=== PATIENT | male | born 1970 | race Caucasian/White ===

== ENCOUNTER → 2020-03-26 | Outpatient (CLI) | payer OTHER ==
[~2020-03-26] MED LIST: CATHETER FLUSH 10 ML SYR IV PRN; HOLD METFORMIN - RECEIVED CONTRAST 20 ML VIAL IV SCH; IOHEXOL 350 MG/ML 150 ML (OMNIPAQUE 350) VIAL IV ONE; NS 100 ML (IVPB) BAG IV ONE
--- NOTE | 2020-03-26 10:05 | Diagnostic Imaging Report ---
EXAMINATION: CT angiography of the chest. TECHNIQUE: Contrast enhanced thin section helical images were obtained through the chest with intravenous contrast timed for the optimal opacification of the arterial structures per CTA protocol. Post-processing, reconstructions and interpretation of angiographic images of the vessels was performed. 3D MIP reconstructions were performed and reviewed. All CT scans use one or more of the following dose optimizing techniques: automated exposure control, MA and/or KvP adjustment based on a patient size and exam type, or iterative reconstruction. HISTORY: COVID-19 with cough, shortness of breath and elevated D-dimer. COMPARISON: None available. FINDINGS: Vascular: No filling defects within the pulmonary arteries. Thoracic aorta is normal in caliber. Thyroid: The thyroid is normal. Mediastinum: Heart size is normal without significant pericardial effusion. No suspicious lymphadenopathy. Lungs and airways: The lungs are clear without consolidation, pleural effusion, or pneumothorax. The airways are normal. Upper abdomen: The gallbladder is surgically absent. There is mild mesenteric stranding and prominent but not pathologically enlarged lymph nodes within the mesentery. Musculoskeletal: No suspicious osseous lesion or compression fracture. IMPRESSION: 1. No findings of pulmonary embolus or other acute abnormality in the chest. 2. Mesenteric fat stranding and prominent lymph nodes. Although these findings are nonspecific, they can be seen with entity such as lymphoma. Recommend correlation with laboratory values. Dictated by: Dictated on workstation # [id number]
== END ==
LOC: RAD FS 09:16
PROVIDERS: ATTEND Nurse Practitioner Family
DX: U07.1 COVID-19 (principal); R79.1 Abnormal coagulation profile; Z90.49 Acquired absence of other specified parts of digestive tract
CPT/HCPCS: 71275

== ENCOUNTER → 2021-02-09 | Outpatient (CLI) | payer OTHER ==
--- NOTE | 2021-02-09 11:42 | Diagnostic Imaging Report ---
PROCEDURE: CT urinary tract, rule out kidney stone. TECHNIQUE: Multiple contiguous axial images were obtained through the abdomen and pelvis without the use of intravenous contrast. Auto Exposure Controls were utilized during the CT exam to meet ALARA standards for radiation dose reduction. INDICATION: Left-sided flank pain x 1 month. Patient does have a history of kidney stones. COMPARISON: No prior studies are available for comparison. FINDINGS: The lung bases are clear. The liver is unremarkable. The gallbladder is surgically absent. No biliary ductal dilatation is seen. The pancreas and spleen are unremarkable. No adrenal mass is detected. No renal calculi or hydronephrosis is identified. There is a probable cyst in the lower pole of the left kidney measuring 2 cm. No ureteral or bladder calculi are seen. The small and large bowel loops are normal in caliber. There is no obstruction. There is diverticulosis throughout the colon, most marked involving the sigmoid colon, but no evidence of acute diverticulitis. There is no free fluid or fluid collection. There is some hazy density to the central mesentery, nonspecific. Shotty lymph nodes throughout the mesentery are also seen. The bladder and prostate are unremarkable. There are fat-containing inguinal hernias bilaterally. There is sclerosis of the sacroiliac joints bilaterally, consistent with sacroiliitis. IMPRESSION: 1. No evidence of urinary tract calculi or obstruction. 2. Uncomplicated diverticulosis. 3. Nohemy central mesentery, consistent with nonspecific mesenteritis. 4. Fat-containing bilateral inguinal hernias. 5. Bilateral sacroiliitis. Dictated by: Dictated on workstation # [id number]
== END ==
LOC: RAD FS 11:01
PROVIDERS: ATTEND Family Medicine
DX: K57.30 Diverticulosis of large intestine without perforation or abscess without bleeding (principal); K40.20 Bilateral inguinal hernia, without obstruction or gangrene, not specified as recurrent; M46.1 Sacroiliitis, not elsewhere classified
CPT/HCPCS: 74176